=== PATIENT | female | born 1990 | race Hispanic/Latino ===

== ENCOUNTER 2023-02-24 04:23 | Emergency (ER) | payer OTHER ==
[~2023-02-24] VITALS: Ht 160 cm; Wt 76.2 kg
[2023-02-24] MEDS ORDERED: IBUPROFEN 600 MG TABLET PO ONE (05:00)
[2023-02-24] MEDS ORDERED: CEFTRIAXONE 1G VIAL IVP ONE (05:00)
[2023-02-24] MEDS ORDERED: SULFAMETHOX-TMP DS 800/160 TAB PO SCH (05:00)
[2023-02-24] MEDS ORDERED: CEFTRIAXONE 1G VIAL IM ONE (05:30)
[2023-02-24] MEDS ORDERED: SULF1TAB42 PO (05:43)
[2023-02-24] MEDS ORDERED: IBUP-2070 PO (05:43)
[2023-02-24] MEDS ORDERED: CEFU500T67 PO (05:43)
[2023-02-24 05:58] VITALS: BP 129/85
== END 2023-02-24 05:59 | disposition home or self-care (01) ==
LOC: EDH 04:23
DX: L03.012 Cellulitis of left finger (principal); Z79.1 Long term (current) use of non-steroidal anti-inflammatories (NSAID)
CPT/HCPCS: 99283; 73140; 96372; J0696